=== PATIENT | female | born 1950 | race Caucasian/White ===

== ENCOUNTER 2017-01-14 02:08 | Emergency (ER) | payer MEDICARE ==
[2017-01-14 02:26] VITALS: BP 133/83; PULSE 86; RESP 18; TEMP 97.6; O2SAT 98
[2017-01-14] MEDS ORDERED: VENTAER INH (02:32)
[2017-01-14 03:26] LABS: AUTOMATED NEUTROPHIL # 3.2 TH/MM3 (1.8-7.7); BASOPHIL % 0.6 % (0.0-2.0); EOSINOPHIL # 0.3 TH/MM3 (0-0.4); EOSINOPHIL % 4.8 % (0.0-4.0); HEMATOCRIT 38.5 % (35.0-46.0); HEMO FLAGS DIFF FINAL; LYMPH % 38.4 % (9.0-44.0); LYMPHOCYTE # 2.5 TH/MM3 (1.0-4.8); MEAN CELL VOLUME 95.7 FL (80.0-100.0); MEAN CORPUSCULAR HEMOGLOBIN 32.4 PG (27.0-34.0); MEAN CORPUSCULAR HGB CONC 33.9 % (32.0-36.0); MONO % 7.9 % (0.0-8.0); NEUT % 48.3 % (16.0-70.0); PLATELET COUNT 261 TH/MM3 (150-450); RED BLOOD COUNT 4.02 MIL/MM3 (4.00-5.30); RED CELL DISTRIBUTION WIDTH 12.8 % (11.6-17.2); WHITE BLOOD COUNT 6.6 TH/MM3 (4.0-11.0)
[2017-01-14 03:34] LABS: AMPHETAMINE, URINE NEG (NEG); BARBITURATES, URINE NEG (NEG); COCAINE, URINE NEG (NEG)
--- NOTE | 2017-01-14 03:39 | PD ---
HPI Chief Complaint: Psychiatric Symptoms Time Seen by Provider: 03:33 Travel History International Travel<30 days: No Contact w/Intl Traveler<30days: No Traveled to known affect area: No History of Present Illness HPI 66-year-old female was Tomasz acted for suicidal breath. Patient was Tomasz acted and brought in by police department after calling them and states that she was feeling sad or depressed and suicidal. Patient states that she is sad and depressed now, however denies any suicidal ideation. Patient denies any headache. Patient denies any chest pain or shortness of breath. Patient denies abdominal pain. Patient denies any coughing congestion. Patient denies any fever chills. Patient has history of COPD and arthritis. Patient states that she use albuterol inhaler once in a while. Patient is a smoker. Patient denies any alcohol or illicit drug abuse. PFSH Past Medical History Arthritis: Yes COPD: Yes Diminished Hearing: No Past Surgical History Cholecystectomy: Yes Hysterectomy: Yes Social History Alcohol Use: Yes (EVERYDAY ) Tobacco Use: Yes (1.5 PPD ) Substance Use: No Allergies-Medications (Allergen,Severity, Reaction): Coded Allergies: No Known Allergies (Unverified , 01/14/17) Reported Meds & Prescriptions Reported Meds & Active Scripts Active Reported Ventolin Hfa 18 GM Inh (Albuterol Sulfate) 90 Mcg/Act Aer 1 Puff INH Q4H PRN Review of Systems General / Constitutional: No: Fever Eyes: No: Visual changes HENT: No: Headaches Cardiovascular: No: Chest Pain or Discomfort Respiratory: No: Shortness of Breath Gastrointestinal: No: Abdominal Pain Genitourinary: No: Dysuria Musculoskeletal: No: Pain Skin: No Rash Neurologic: No: Weakness Psychiatric: No: Depression Endocrine: No: Polydipsia Hematologic/Lymphatic: No: Easy Bruising Physical Exam Narrative GENERAL: Well-nourished, well-developed patient. SKIN: Focused skin assessment warm/dry. HEAD: Normocephalic. EYES: No scleral icterus. No injection or drainage. NECK: Supple, trachea midline. No JVD or lymphadenopathy. CARDIOVASCULAR: Regular rate and rhythm without murmurs, gallops, or rubs. RESPIRATORY: Breath sounds equal bilaterally. No accessory muscle use. GASTROINTESTINAL: Abdomen soft, non-tender, nondistended. MUSCULOSKELETAL: No cyanosis, or edema. BACK: Nontender without obvious deformity. No CVA tenderness. Neurologic exam normal. Data Data Last Documented VS Vital Signs Date Time Temp Pulse Resp B/P Pulse Ox O2 Delivery O2 Flow Rate FiO2 01/14/17 02:29 86 18 01/14/17 02:26 97.6 133/83 98 Orders Complete Blood Count With Diff (01/14/17 03:06) Comprehensive Metabolic Panel (01/14/17 03:06) Psych Screen (01/14/17 03:06) Drug Screen, Random Urine (01/14/17 03:06) Alcohol (Ethanol) (01/14/17 03:06) Salicylates (Aspirin) (01/14/17 03:06) Tylenol (Acetaminophen) (01/14/17 03:06) Labs Laboratory Tests Test 01/14/17 03:00 White Blood Count 6.6 TH/MM3 Red Blood Count 4.02 MIL/MM3 Hemoglobin 13.0 GM/DL Hematocrit 38.5 % Mean Corpuscular Volume 95.7 FL Mean Corpuscular Hemoglobin 32.4 PG Mean Corpuscular Hemoglobin 33.9 % Concent Red Cell Distribution Width 12.8 % Platelet Count 261 TH/MM3 Mean Platelet Volume 8.5 FL Neutrophils (%) (Auto) 48.3 % Lymphocytes (%) (Auto) 38.4 % Monocytes (%) (Auto) 7.9 % Eosinophils (%) (Auto) 4.8 % Basophils (%) (Auto) 0.6 % Neutrophils # (Auto) 3.2 TH/MM3 Lymphocytes # (Auto) 2.5 TH/MM3 Monocytes # (Auto) 0.5 TH/MM3 Eosinophils # (Auto) 0.3 TH/MM3 Basophils # (Auto) 0.0 TH/MM3 CBC Comment DIFF FINAL Differential Comment Sodium Level 138 MEQ/L Potassium Level 3.5 MEQ/L Chloride Level 105 MEQ/L Carbon Dioxide Level 23.5 MEQ/L Anion Gap 10 MEQ/L Blood Urea Nitrogen 8 MG/DL Creatinine 0.79 MG/DL Estimat Glomerular Filtration 73 ML/MIN Rate Random Glucose 86 MG/DL Calcium Level 8.6 MG/DL Total Bilirubin 0.3 MG/DL Aspartate Amino Transf 19 U/L (AST/SGOT) Alanine Aminotransferase 29 U/L (ALT/SGPT) Alkaline Phosphatase 62 U/L Total Protein 7.1 GM/DL Albumin 3.6 GM/DL Salicylates Level 3.3 MG/DL Urine Opiates Screen NEG Acetaminophen Level 36.7 MCG/ML Urine Barbiturates Screen NEG Urine Amphetamines Screen NEG Urine Benzodiazepines Screen NEG Urine Cocaine Screen NEG Urine Cannabinoids Screen NEG Ethyl Alcohol Level 194 MG/DL MDM Medical Decision Making Medical Screen Exam Complete: Yes Emergency Medical Condition: Yes Interpretation(s) 4 :11 AM. CBC within normal limit. CMP within normal limit. Urine drug screen negative. Acetaminophen 36.7. Alcohol 194. Salicylate 3.3. Differential Diagnosis Differential diagnosis including adjustment disorder, depression, suicidal. Narrative Course 66-year-old female was Tolbert acted for suicidal threat. Patient is medically cleared for psychiatric evaluation and disposition. Tylenol level mildly elevated. No need for treatment at this point. Omid Bautista MD Jan 14, 2017 03:39
[2017-01-14 03:45] LABS: ALT (GPT) 29 U/L (10-53); ANION GAP 10 MEQ/L (5-15); AST (GOT) 19 U/L (15-37); BICARBONATE 23.5 MEQ/L (21.0-32.0); BLOOD UREA NITROGEN 8 MG/DL (7-18); CHLORIDE 105 MEQ/L (98-107); GLOMERULAR FILTRATION RATE 73 ML/MIN (>89); POTASSIUM 3.5 MEQ/L (3.5-5.1); SODIUM (NA) 138 MEQ/L (136-145)
[2017-01-14 03:47] LABS: ACETAMINOPHEN 36.7 MCG/ML (10.0-30.0); ALKALINE PHOSPHATASE 62 U/L (45-117); TOTAL BILIRUBIN ADULT 0.3 MG/DL (0.2-1.0)
[2017-01-14 07:45] VITALS: BP 121/66; PULSE 78; RESP 18; O2SAT 95
[2017-01-14] MEDS ORDERED: CELE40TA PO (09:31)
[2017-01-14 11:17] VITALS: BP 118/61
--- NOTE | 2017-01-14 11:23 | PD ---
History of Present Illness Chief Complaint: Psychiatric Symptoms Time Seen by Provider: 09:00 Travel History International Travel<30 Days: No Contact w/Intl Traveler<30days: No Known affected area: No Legal Status Legal Status: Tolbert Act Tolbert Act Signed By: Marlene Newman History of Present Illness: This is a 66-year-old female who was Tolbert acted for allegedly making suicidal comments when she called the police. She does feel that she said the wrong thing to the police last night but she also admits that she was intoxicated. Apparently she has been drinking for the last year although she has a history of alcoholism and a history of attending AA meetings in the past. At this time the patient is denying any suicidal ideation, plan or intent. She also denies any homicidal ideation. She has no psychotic symptoms. Her cognition is completely intact and she is sober. She is verbally alexa for safety. She is willing to go back to AA meetings and obtain a sponsor. PFSH Past Medical History Arthritis: Yes COPD: Yes Diminished Hearing: No Past Surgical History Cholecystectomy: Yes Hysterectomy: Yes Psychiatric History Psychiatric History Hx Psychiatric Treatment: PT DENIES CURRENT TREATMENT HX: DEPRESSION History of Inpatient Treatment: No Guns or firearms in home: No Social History Hx Alcohol Use: Yes (EVERYDAY ) Hx Tobacco Use: Yes (1.5 PPD ) Hx Substance Use: Yes (ALCOHOL DAILY) Substance Use Type: Alcohol Hx of Substance Use Treatment: Yes Allergies-Medications (Allergen,Severity, Reaction): Coded Allergies: No Known Allergies (Unverified , 01/14/17) Reported Meds & Prescriptions Reported Meds & Active Scripts Active Celexa (Citalopram Hydrobromide) 40 Mg Tab 40 Mg PO DAILY Reported Ventolin Hfa 18 GM Inh (Albuterol Sulfate) 90 Mcg/Act Aer 1 Puff INH Q4H PRN Review of Systems Except as stated in HPI: all other systems reviewed are Neg Exam Alert: Yes [place]: Person, Place, Date, Situation Mood: Calm Affect: Appropriate Speech: Clear, Logical Eye Contact: Normal Memory Intact: Immediate, Recent, Remote Insight/Judgement Adequate MDM Medical Decision Making Medical Record Reviewed: Yes Assessment/Plan Patient's Tomasz being lifted and she is being discharged home. In this physician's opinion, she no longer meets criteria for Tolbert act or 4 inpatient psychiatric hospitalization. She was encouraged to stop drinking alcohol and to resume attending AA meetings, get a sponsor, etc. Orders Complete Blood Count With Diff (01/14/17 03:06) Comprehensive Metabolic Panel (01/14/17 03:06) Psych Screen (01/14/17 03:06) Drug Screen, Random Urine (01/14/17 03:06) Alcohol (Ethanol) (01/14/17 03:06) Salicylates (Aspirin) (01/14/17 03:06) Tylenol (Acetaminophen) (01/14/17 03:06) Diet Regular Basic (01/14/17 Breakfast) Tylenol (Acetaminophen) (01/14/17 09:30) Results Vital Signs Date Time Temp Pulse Resp B/P Pulse Ox O2 Delivery O2 Flow Rate FiO2 01/14/17 07:45 78 18 121/66 95 Room Air 01/14/17 02:29 86 18 01/14/17 02:26 97.6 86 18 133/83 98 Laboratory Tests Test 01/14/17 01/14/17 03:00 09:40 White Blood Count 6.6 Red Blood Count 4.02 Hemoglobin 13.0 Hematocrit 38.5 Mean Corpuscular Volume 95.7 Mean Corpuscular Hemoglobin 32.4 Mean Corpuscular Hemoglobin 33.9 Concent Red Cell Distribution Width 12.8 Platelet Count 261 Mean Platelet Volume 8.5 Neutrophils (%) (Auto) 48.3 Lymphocytes (%) (Auto) 38.4 Monocytes (%) (Auto) 7.9 Eosinophils (%) (Auto) 4.8 Basophils (%) (Auto) 0.6 Neutrophils # (Auto) 3.2 Lymphocytes # (Auto) 2.5 Monocytes # (Auto) 0.5 Eosinophils # (Auto) 0.3 Basophils # (Auto) 0.0 CBC Comment DIFF FINAL Differential Comment Sodium Level 138 Potassium Level 3.5 Chloride Level 105 Carbon Dioxide Level 23.5 Anion Gap 10 Blood Urea Nitrogen 8 Creatinine 0.79 Estimat Glomerular Filtration 73 Rate Random Glucose 86 Calcium Level 8.6 Total Bilirubin 0.3 Aspartate Amino Transf 19 (AST/SGOT) Alanine Aminotransferase 29 (ALT/SGPT) Alkaline Phosphatase 62 Total Protein 7.1 Albumin 3.6 Salicylates Level 3.3 Urine Opiates Screen NEG Acetaminophen Level 36.7 LESS THAN 2.0 Urine Barbiturates Screen NEG Urine Amphetamines Screen NEG Urine Benzodiazepines Screen NEG Urine Cocaine Screen NEG Urine Cannabinoids Screen NEG Ethyl Alcohol Level 194 Diagnosis Primary Impression: Alcohol abuse Departure Forms: Tests/Procedures Patient Instructions: General Instructions, Citalopram (By mouth), Alcohol Intoxication (ED), Abuse of Alcohol (ED), Medical Clearance for Psychiatric Care (ED) Additional Instructions: Follow up with outpatient primary care provider. Follow up with outpatient psychiatric provider. Attend AA Meetings. Return to ER if symptoms worsen. Prescriptions Citalopram (Celexa)40 Mg Tab40 Mg PO DAILY #30 TAB Ref 0 Prov:Amos Hurley MD 01/14/17 Disposition: 01 DISCHARGE HOME Condition: Stable Amos Hurley MD Jan 14, 2017 11:23
== END 2017-01-14 11:19 | disposition home or self-care (01) ==
LOC: NEPC 02:08
DX: F10.10 Alcohol abuse, uncomplicated (principal); F17.200 Nicotine dependence, unspecified, uncomplicated; F32.9 Major depressive disorder, single episode, unspecified; Y90.6 Blood alcohol level of 120-199 mg/100 ml; Z79.899 Other long term (current) drug therapy
CPT/HCPCS: 80053; 80307; 85025; 99284